=== PATIENT | female | born 1985 | race Caucasian/White ===

== ENCOUNTER 2017-01-28 14:12 | Emergency (ER) | payer OTHER ==
[~2017-01-28] VITALS: Ht 162.6 cm; Wt 74.8 kg
[~2017-01-28 14:12] MED LIST: LAMO200T PO; SERT100T5 PO
[2017-01-28] MEDS ORDERED: DIAZ5TAB4 PO (14:40)
[2017-01-28] MEDS ORDERED: DIAZ10TA4 PO (14:40)
[2017-01-28] MEDS ORDERED: SODIUM CHLORIDE FLUSH 10ML SYR IVF ONE (15:00)
[2017-01-28 15:40] LABS: HEMOGLOBIN 17.8 g/dL (11.7-16.4)
[2017-01-28 15:41] LABS: BLOOD UREA NITROGEN 8 mg/dL (7-18)
[2017-01-28 15:46] LABS: ASPARTATE AMINO TRANSFERASE 22 U/L (15-37)
[2017-01-28] MEDS ORDERED: LORazepam 2 MG/ML, 1ML ONE (15:49)
[2017-01-28] MEDS ORDERED: ACETAMINOPHEN 325 MG TABLET ONE (15:50)
[2017-01-28] MEDS ORDERED: ACETAMINOPHEN 325 MG TABLET PO ONE (16:00)
[2017-01-28] MEDS ORDERED: LORazepam 2 MG/ML, 1ML IVPush ONE (16:00)
[2017-01-28 16:51] VITALS: BP 124/82
== END 2017-01-28 17:07 | disposition home or self-care (01) ==
LOC: ED 16:18
DX: G40.309 Generalized idiopathic epilepsy and epileptic syndromes, not intractable, without status epilepticus (principal)
CPT/HCPCS: 36415; 80053; 85025; 93005; 96374; 99285; J2060

== ENCOUNTER 2017-02-06 09:45 | Emergency (ER) | payer OTHER ==
[~2017-02-06] VITALS: Ht 165.1 cm; Wt 70.0 kg
[~2017-02-06 09:45] MED LIST changes: +DIAZ10TA4 PO; +DIAZ5TAB4 PO
[2017-02-06 09:55] VITALS: BP 101/62
== END 2017-02-06 11:05 | disposition home or self-care (01) ==
LOC: ED 10:59
DX: R56.9 Unspecified convulsions (principal); G40.909 Epilepsy, unspecified, not intractable, without status epilepticus
CPT/HCPCS: 99283

== ENCOUNTER 2017-03-11 08:00 | Emergency (ER) | payer OTHER ==
[~2017-03-11] VITALS: Ht 165.1 cm; Wt 72.0 kg
[2017-03-11] MEDS ORDERED: SODIUM CHLORIDE 0.9% 1,000ML IVBOLUS ONE (09:30)
[2017-03-11] MEDS ORDERED: ONDANSETRON 2MG/ML, 2ML IVPush ONE (09:30)
[2017-03-11] MEDS ORDERED: FAMOTIDINE 20 MG/2 ML IVP ONE (09:30)
[2017-03-11] MEDS ORDERED: ONDANSETRON 2MG/ML, 2ML ONE (09:43)
[2017-03-11] MEDS ORDERED: FAMOTIDINE 20 MG/2 ML ONE (09:43)
[2017-03-11 10:23] VITALS: BP 118/67
== END 2017-03-11 11:04 | disposition home or self-care (01) ==
LOC: ED 10:17
DX: K52.9 Noninfective gastroenteritis and colitis, unspecified (principal); G40.909 Epilepsy, unspecified, not intractable, without status epilepticus
CPT/HCPCS: 96361; 96374; 96375; 99284; J2405; J7030; S0028

== ENCOUNTER 2017-05-22 14:00 | Observation (INO) | payer OTHER ==
[~2017-05-22] VITALS: Ht 165.1 cm; Wt 81.5 kg
[~2017-05-22 14:00] MED LIST changes: -LAMO200T PO; +LAMO200T2 PO
[2017-05-22] MEDS ORDERED: PARO40TA61 PO (14:51)
[2017-05-22] MEDS ORDERED: QUET100T4 PO (14:51)
[2017-05-22] MEDS ORDERED: ZONI100C2 PO (14:51)
[2017-05-22] MEDS ORDERED: GABA300C10 PO (14:51)
[2017-05-22 15:37] LABS: BASOPHILS # (AUTO) 0.05 x10^3/uL (0-0.1); BASOPHILS % (AUTO) 1 % (0-1); EOSINOPHILS # (AUTO) 0.07 x10^3/uL (0-0.4); EOSINOPHILS % (AUTO) 1 % (1-7); LYMPHOCYTES # (AUTO) 2.01 x10^3/uL (1-3.4); LYMPHOCYTES % (AUTO) 31 % (22-44); MD NO; MEAN CORPUSCULAR HEMOGLOBIN 30.6 pg (27.0-34.8); MEAN CORPUSCULAR HGB CONC 33.6 g/dL (32.4-35.8); MEAN CORPUSCULAR VOLUME 91.1 fL (80-100); MEAN PLATELET VOLUME 9.3 fL (7.4-10.4); MONOCYTES # (AUTO) 0.39 x10^3/uL (0.2-0.8); MONOCYTES % (AUTO) 6 % (2-9); NEUTROPHILS # (AUTO) 3.94 x10^3/uL (1.8-6.8); NEUTROPHILS % (AUTO) 61 % (42-75); PLATELET COUNT 190 x10^3/uL (130-400); RED BLOOD COUNT 4.81 x10^6/uL (3.82-5.3); RED CELL DISTRIBUTION WIDTH 13.4 % (9.6-15.2)
[2017-05-22 15:41] LABS: ALBUMIN 3.7 g/dL (3.4-5.0); ANION GAP 5 mmol/L (5-15); CALCIUM 8.6 mg/dL (8.5-10.1); CHLORIDE 108 mmol/L (98-107); CREATININE 0.96 mg/dL (0.55-1.02)
[2017-05-22 15:47] LABS: ACETAMINOPHEN < 2 mcg/mL (10-30); SALICYLATE LEVEL < 1.7 mg/dL (2.8-20.0)
[2017-05-22 16:35] LABS: AMPHETAMINE SCREEN, URINE Negative (Negative); BARBITURATE SCREEN, URINE Negative (Negative); BENZODIAZEPINE SCREEN, URINE Negative (Negative); CANNABINOID SCREEN, URINE Negative (Negative); COCAINE SCREEN, URINE Negative (Negative); METHADONE SCREEN, URINE Negative (Negative); OPIATE SCREEN, URINE Negative (Negative)
[2017-05-22] MEDS ORDERED: LORazepam 1MG TABLET PO PRN (18:00)
[2017-05-22] MEDS ORDERED: DOCUSATE 100 MG CAPSULE PO PRN (18:00)
[2017-05-22] MEDS ORDERED: GUAIFENESIN/DM 200-20MG, 10ML UDC PO PRN (18:00)
[2017-05-22] MEDS ORDERED: DIPHENHYDRAMINE 25 MG CAPSULE PO PRN (18:00)
[2017-05-22] MEDS ORDERED: ONDANSETRON ODT 4 MG PO PRN (18:00)
[2017-05-22] MEDS: GABAPENTIN 300 MG CAPSULE PO SCH (22:08)
[2017-05-22] MEDS: QUETIAPINE 100MG TABLET PO SCH (22:08)
[2017-05-22] MEDS: ZONISAMIDE 50 MG CAPSULE PO SCH (22:08)
[2017-05-23] MEDS: GABAPENTIN 300 MG CAPSULE PO SCH ×3 (09:55→21:27)
[2017-05-23] MEDS: QUETIAPINE 100MG TABLET PO SCH ×2 (09:55→21:27)
[2017-05-23] MEDS: PAROXETINE 20 MG TABLET PO SCH (09:56)
[2017-05-23 19:39] VITALS: BP 99/64
[2017-05-23 21:20] VITALS: BP 113/75
[2017-05-23] MEDS: ZONISAMIDE 50 MG CAPSULE PO SCH (21:26)
[2017-05-24 07:38] VITALS: BP 103/67
[2017-05-24] MEDS: PAROXETINE 20 MG TABLET PO SCH (08:18)
[2017-05-24] MEDS: GABAPENTIN 300 MG CAPSULE PO SCH ×2 (08:18→15:25)
[2017-05-24] MEDS: QUETIAPINE 100MG TABLET PO SCH ×2 (08:18→21:00)
[2017-05-24] MEDS: ACETAMINOPHEN 325 MG TABLET PO PRN ×2 (13:39→18:03)
[2017-05-24 20:14] VITALS: BP 109/69
[2017-05-24] MEDS ORDERED: ZONISAMIDE 50 MG CAPSULE PO SCH (21:00)
[2017-05-25] MEDS ORDERED: PAROXETINE 20 MG TABLET PO SCH ×2 (09:00)
== END 2017-05-25 02:40 ==
LOC: ED 14:23 → EDIP 17:20 → 2N 05-23 14:35
PROVIDERS: ADMIT Internal Medicine; ATTEND Internal Medicine
DX: R45.851 Suicidal ideations (principal); F31.9 Bipolar disorder, unspecified; G40.909 Epilepsy, unspecified, not intractable, without status epilepticus; E66.3 Overweight; F10.21 Alcohol dependence, in remission; F33.3 Major depressive disorder, recurrent, severe with psychotic symptoms; Z68.29 Body mass index [BMI] 29.0-29.9, adult; Z87.891 Personal history of nicotine dependence
CPT/HCPCS: 36415; 80048; 80307; 80329; 82040; 84703; 85025; 99285; G0378; Q0163; G0480